=== PATIENT | female | born 1970 | race Caucasian/White ===

== ENCOUNTER 2018-04-09 05:56 | Day surgery (SDC) | payer OTHER ==
[~2018-04-09 05:56] MED LIST: Buffered Lidocaine 0.9% SYRIN* 5 ML/SYR SYRINGE INTRADERM ONE
[2018-04-09] MEDS ORDERED: ceFAZolin 2 GM PREMIX (*) 0 GM/0 ML BAG IVPB ONE (06:04)
[2018-04-09 06:52] LABS: ABS Basophils 0 10^3/ul (0-0.2); ABS Eosinophils 0 10^3/ul (0-0.6); ABS Lymphocytes 1.8 10^3/ul (1.0-4.8); ABS Monocytes 0.6 10^3/ul (0-0.8); ABS Neutrophils 2.5 10^3/ul (1.5-7.7); ABS Nucleated RBC 0 10^3/ul; Hematocrit 38 % (35-47); Hemoglobin 12.6 g/dl (12.0-16.0); Lymphocyte % 36.2 % (25-47); Mean Corpuscular HGB Conc 33 g/dl (31-36); Mean Corpuscular Hemoglobin 33 pg (27-31); Mean Corpuscular Volume 101 fL (80-97); Mean Platelet Volume 7.6 um3 (7.4-10.4); Nucleated Red Blood Cells % 0; Platelet Count 261 10^3/ul (150-450); Red Blood Count 3.79 10^6/ul (4.0-5.4); Red Cell Distribution Width 14 % (10.5-15); White Blood Count 4.9 10^3/ul (3.5-10.8)
[2018-04-09] MEDS ORDERED: ceFOXitin(*) 2 GM in NS 0.9% 50 ML* 50 ML IVPB ONE (07:00)
[2018-04-09] MEDS ORDERED: fentaNYL* 50 MCG/ML 2 ML VIAL (100 MCG VIAL) ONE (07:16)
[2018-04-09] MEDS ORDERED: Midazolam* 1 MG/ML 2 ML VIAL (2 MG) ONE (07:16)
[2018-04-09] MEDS ORDERED: Lidocaine 1% INJ* 10 MG/ML 30 ML SDV ONE (07:29)
[2018-04-09] MEDS ORDERED: Silver Nitrate/Potassium Nitr* 1 EA STICK ONE (07:29)
[2018-04-09] MEDS ORDERED: Famotidine IV* 10 MG/ML 2 ML (20 mg) ONE (07:57)
[2018-04-09] MEDS ORDERED: Dexamethasone IV* 4 MG/ML 1 ML (4 MG) ONE (07:57)
[2018-04-09] MEDS ORDERED: Ondansetron ODT TAB* 4 MG ONE (07:57)
[2018-04-09] MEDS ORDERED: Lidocaine 2% PF * 5 ML VIAL ONE (07:57)
[2018-04-09] MEDS ORDERED: Propofol* 10 MG/ML 20 ML BTL IV PUSH ONE (07:57)
[2018-04-09] MEDS ORDERED: HYDROcodone/ACETAMIN 5-325 MG* 1 TAB PO PRN (07:59)
[2018-04-09] MEDS ORDERED: PROCHLORPERAZINE INJ 5 MG/ML 2 ML VIAL IV PRN (07:59)
[2018-04-09] MEDS ORDERED: DiMENhydriNATE IV* 50 MG/ML VIAL IV PUSH PRN (07:59)
[2018-04-09] MEDS ORDERED: Ondansetron ODT TAB* 4 MG PO PRN (07:59)
[2018-04-09] MEDS ORDERED: Levalbuterol 0.63MG/3ML NEB* UNIT OF USE INH PRN (07:59)
[2018-04-09] MEDS ORDERED: fentaNYL* 50 MCG/ML 2 ML VIAL (100 MCG VIAL) IV PRN (07:59)
[2018-04-09] MEDS ORDERED: Naloxone* 0.4 MG/ML 1 ML VIAL IV PRN (07:59)
[2018-04-09] MEDS ORDERED: Acetaminophen TAB* 325 MG PO PRN (07:59)
[2018-04-09] MEDS ORDERED: Ketorolac INJ* 30 MG/ML 1 ML VIAL ONE (08:07)
[2018-04-09 08:51] VITALS: BP 148/91
--- NOTE | 2018-04-10 03:46 | OP ---
ADDENDUM FOR ANESTHESIA NOW INCLUDED ON THIS REPORT DATE OF OPERATION: 04/09/18 - [facility] DATE OF : 66 SURGEON: Cecily Denise MD CASINO SUPERVISOR: None. ANESTHESIOLOGIST: Dr. Joyce. ANESTHESIA: General endotracheal and paracervical block. PRE-OP DIAGNOSIS: Menorrhagia. POST-OP DIAGNOSIS: Menorrhagia. OPERATIVE PROCEDURE: Dilation, curettage, hysteroscopy, and NovaSure endometrial ablation. ESTIMATED BLOOD LOSS: Minimal. URINE OUTPUT: 150 cc of clear yellow urine. FLUIDS: 600 cc of crystalloid. DEFICIT: Zero. FINDINGS: Revealed normal endometrial uterine cavity with no masses, excrescences, or submucous fibroids. The uterine cavity width was 2.5 cm. Sounding length of the uterine cavity was 4.5 cm, the ohms 62. The cycle course was 1 minute and 15 seconds. COMPLICATIONS: None apparent. DISPOSITION: Stable to recovery room. DESCRIPTION OF PROCEDURE: The patient was placed in dorsal lithotomy position. The perineum and vagina were prepped and draped in a sterile standard fashion. The patient was identified for universal protocol with correct procedure, patient, and position. A self-cath was inserted for drainage of clear-yellow urine of 150 cc. The self-cath was removed. The sterile speculum was inserted. The cervix was visualized. Paracervical block of 10 cc of 1% lidocaine was injected. A single- tooth tenaculum was then placed on the cervix. The cervical length was then determined to be 2.5 cm using #5 Hegar dilator, then dilated to #7 Hegar dilator. Hysteroscope was inserted, confirming normal uterine cavity without masses or excrescences. Normal tubal ostia were seen bilaterally. At that point, the hysteroscope was removed. The sounding length of 7 cm gave a cavity length of 4.5 cm. The NovaSure ablative wand was seated in standard technique. The cavity width was at a minimal width of 2.5 cm. The cavity assessment was carried out with CO2 and path. The deployment of the ablation occurred at 62 ohms for a total of 1 minute and 15 seconds. The NovaSure ablative device was removed. Hysteroscopy was inserted. The uterine cavity was noted to have a good ablative effect. The hysteroscope was removed. Single-tooth tenaculum removed. Sterile speculum was removed. Minimal bleeding was noted. All sponge, needle, instrument, and blade counts were correct throughout the case. The patient tolerated the procedure well and went to the recovery room in stable condition. ADDENDUM: ANESTHESIA: General paracervical block. DESCRIPTION OF PROCEDURE: A sterile speculum was inserted. Paracervical block of 1% lidocaine 10 cc was applied, and then a single-tooth tenaculum placed on the anterior lip. [id number] #: [id number]/CPS #: [id number] [facility]
--- NOTE | 2018-04-10 07:36 | OP ---
OPERATIVE REPORT: ADDENDUM: ANESTHESIA: General paracervical block. DESCRIPTION OF PROCEDURE: A sterile speculum was inserted. Paracervical block of 1% lidocaine 10 cc was applied and then a single-tooth tenaculum placed on the anterior lip. [id number] #: [id number] MTDD
== END 2018-04-09 09:06 | disposition home or self-care (01) ==
LOC: OR 05:56
PROVIDERS: ATTEND Obstetrics & Gynecology
DX: N92.0 Excessive and frequent menstruation with regular cycle (principal); Z72.0 Tobacco use; F41.8 Other specified anxiety disorders; F10.21 Alcohol dependence, in remission
CPT/HCPCS: 36415; 85025; 86850; 86900; 86901; 88305; A9270-GY; J0690; J0694; J1100; J1885; J2250; J2704; J3010